=== PATIENT | female | born 1980 | race Caucasian/White ===

== ENCOUNTER 2023-05-31 10:13 | Outpatient (CLI) | payer BC | END 2023-05-31 10:14 | disposition home or self-care (01) | LOC: CSHMAMMO 10:13 | PROVIDERS: ATTEND Family Medicine | DX: Z12.31 Encounter for screening mammogram for malignant neoplasm of breast (principal) | CPT/HCPCS: 77063; 77067 ==

== ENCOUNTER 2023-08-18 14:05 | Outpatient (CLI) | payer BC ==
[~2023-08-18 14:05] MED LIST: Iopamidol 300 61% 100 ML VIAL FS ONE
== END 2023-08-18 14:06 | disposition home or self-care (01) ==
LOC: CSHCT 14:05
PROVIDERS: ATTEND Obstetrics & Gynecology
DX: C52 Malignant neoplasm of vagina (principal); R91.8 Other nonspecific abnormal finding of lung field; K76.9 Liver disease, unspecified; K66.8 Other specified disorders of peritoneum; N85.8 Other specified noninflammatory disorders of uterus; K62.9 Disease of anus and rectum, unspecified
CPT/HCPCS: 71260; 74177; Q9967

== ENCOUNTER 2023-08-30 11:00 | Outpatient (CLI) | payer BC ==
[2023-08-30 12:10] LABS: Hematocrit 41.1 % (34.9-44.5); Hemoglobin 11.9 g/dL (12.0-15.5); Mean Corpuscular Hemoglobin 22.5 pg (27.0-33.0); Mean Corpuscular Volume 77.7 fl (81.6-98.3); Mean Platelet Volume 9.8 fl (7.4-10.4); Platelet Count 566 10x3/uL (150-450); RBC Distribution Width 18.5 % (11.5-14.5); Red Blood Cell (RBC) Count 5.29 10x6/uL (3.90-5.03)
[2023-08-30 12:17] LABS: INR-International Normal Ratio 1.2; PTT 29.3 sec (22.0-33.0); Prothrombin Time 12.4 sec (9.5-12.1)
[2023-08-30 12:23] LABS: Anion Gap 17 mmol/L (10-20); BUN (Urea Nitrogen) 16 mg/dL (7.0-18.7); Calc. Creatinine Clearance 0 mL/min (70-130); Calcium 9.6 mg/dL (7.8-10.44); Carbon Dioxide 25 mmol/L (22-29); Chloride 101 mmol/L (98-107); Estimated GFR 85; Glucose 112 mg/dL (70-105); Potassium 4.3 mmol/L (3.5-5.1); Sodium 139 mmol/L (136-145)
[2023-08-30 12:25] LABS: ALT (SGPT) 24 U/L (8-55); AST (SGOT) 51 U/L (5-34); Albumin 3.7 g/dL (3.5-5.0); Alkaline Phosphatase 297 U/L (40-110); Bilirubin, Direct 0.3 mg/dL (0.1-0.3); Bilirubin, Total 0.6 mg/dL (0.2-1.2); Protein, Total 6.6 g/dL (6.0-8.3)
== END 2023-08-30 11:01 | disposition home or self-care (01) ==
LOC: CSHLAB 11:00
PROVIDERS: ATTEND Surgery
DX: Z01.818 Encounter for other preprocedural examination (principal); C52 Malignant neoplasm of vagina
CPT/HCPCS: 80048; 80076; 85027; 85610; 85730; 93005; 93010

== ENCOUNTER 2023-09-04 05:38 | Day surgery (SDC) | payer BC ==
[2023-08-30 11:37] VITALS: BMI 54.9
[2023-09-04] MEDS ORDERED: Bupivacaine PF 0.5% 30 ML VIAL ONE (06:15)
[2023-09-04] MEDS ORDERED: EPINEPHrine 1 MG/ML VIAL ONE (06:15)
[2023-09-04] MEDS ORDERED: Sevoflurane 250 ML INH ANEST BOTTLE ONE (06:20)
[2023-09-04] MEDS ORDERED: Dexamethasone 20 MG/5 ML VIAL ONE (06:25)
[2023-09-04] MEDS ORDERED: fentaNYL 50 mcg/mL 1 mL Vial ONE (06:25)
[2023-09-04] MEDS ORDERED: Ondansetron PF 4 MG/2 ML Vial ONE (06:25)
[2023-09-04] MEDS ORDERED: Midazolam HCl 2 mg/2 ml Vial ONE (06:25)
[2023-09-04] MEDS ORDERED: PROPOFOL 20 ML ONE (06:25)
[2023-09-04] MEDS ORDERED: Lidocaine 1% PF 5 ML VIAL ONE (06:27)
[2023-09-04] MEDS ORDERED: CEFAZOLIN 2 GM VIAL ONE (06:45)
[2023-09-04] MEDS ORDERED: PHENYLEPHRINE-NS 100 MCG/ML 10 ML SYRINGE ONE (07:13)
[2023-09-04] MEDS ORDERED: HYDROcodone/Acetaminophen 5/325 mg Tablet PO PRN (07:47)
[2023-09-04] MEDS ORDERED: Acetaminophen 325 MG TAB PO PRN (07:47)
== END 2023-09-04 08:30 | disposition home or self-care (01) ==
LOC: CSHSDC 05:38
PROVIDERS: ATTEND Surgery
PROC: 0JH60WZ Insertion of Totally Implantable Vascular Access Device into Chest Subcutaneous Tissue and Fascia, Open Approach (ICD-10-PCS; principal; 2023-09-04)
DX: C52 Malignant neoplasm of vagina (principal); C79.9 Secondary malignant neoplasm of unspecified site; E66.01 Morbid (severe) obesity due to excess calories; Z68.43 Body mass index [BMI] 50.0-59.9, adult
CPT/HCPCS: 71045; C1788; J0171; J1100; J1642; J2250; J2405; J2704; J3010; S0020

== ENCOUNTER 2023-09-19 13:45 | Outpatient (CLI) | payer BC ==
[~2023-09-19 13:45] MED LIST changes: -Iopamidol 300 61% 100 ML VIAL FS ONE; +Magnevist 469MG/ML 20 ML VIAL ONE
== END 2023-09-19 13:46 | disposition home or self-care (01) ==
LOC: CSHMRI 13:45
PROVIDERS: ATTEND Radiology Radiation Oncology
DX: C80.1 Malignant (primary) neoplasm, unspecified (principal); R94.02 Abnormal brain scan
CPT/HCPCS: 70553